=== PATIENT | male | born 1975 | race Caucasian/White ===

== ENCOUNTER 2018-10-07 00:57 | Emergency (ER) | payer OTHER ==
[~2018-10-07] VITALS: Ht 172.7 cm; Wt 80.7 kg
== END 2018-10-07 18:25 | disposition home or self-care (01) ==
LOC: ER 00:57
DX: K61.39 Other ischiorectal abscess (principal)

== ENCOUNTER 2018-10-29 17:12 | Emergency (ER) | payer OTHER ==
[~2018-10-29] VITALS: Ht 172.7 cm; Wt 81.6 kg
== END 2018-10-29 20:35 | disposition home or self-care (01) ==
LOC: ER 17:12
DX: L02.31 Cutaneous abscess of buttock (principal); L02.415 Cutaneous abscess of right lower limb

== ENCOUNTER 2018-11-01 17:48 | Inpatient (IN) | payer OTHER ==
[~2018-11-01] VITALS: Ht 172.7 cm; Wt 81.6 kg
[2018-11-03] MEDS ORDERED: PERCOCET 5-3251 EACH PO (11:48)
[2018-11-03] MEDS ORDERED: AMOX-CLAV 875-1 EACH PO (11:48)
[2018-11-03] MEDS ORDERED: BACTRIM DS TAB1 EACH PO (12:12)
== END 2018-11-03 12:54 | disposition home or self-care (01) | DRG 989 ==
LOC: ER 17:48 → SURH 21:24
PROVIDERS: ADMIT Surgery
PROC: 0J9B0ZZ Drainage of Perineum Subcutaneous Tissue and Fascia, Open Approach (ICD-10-PCS; principal; 2018-11-01)
PROC: 3E0T3BZ Introduction of Anesthetic Agent into Peripheral Nerves and Plexi, Percutaneous Approach (ICD-10-PCS; 2018-11-01)
DX: K61.39 Other ischiorectal abscess (principal); B95.61 Methicillin susceptible Staphylococcus aureus infection as the cause of diseases classified elsewhere

== ENCOUNTER 2019-08-26 14:30 | Emergency (ER) | payer OTHER ==
[~2019-08-26] VITALS: Ht 170.2 cm; Wt 79.4 kg
[~2019-08-26 14:30] MED LIST: AMOX-CLAV 875-1 EACH PO; BACTRIM DS TAB1 EACH PO; PERCOCET 5-3251 EACH PO
== END 2019-08-26 18:44 | disposition home or self-care (01) ==
LOC: ER 14:30 → CPU-OBS 14:33 → ER 14:33
DX: R07.89 Other chest pain (principal)
CPT/HCPCS: G0378; G0379; 93005